=== PATIENT | male | born 1990 | race Caucasian/White ===

== ENCOUNTER 2018-12-30 17:47 | Observation (INO) ==
[2018-12-30] MEDS ORDERED: 0.9 % Sodium Chloride 1,000 ML IVC ONE (18:09)
[2018-12-30] MEDS ORDERED: Ondansetron 4 MG/2 ML VIAL IVP ONE ×2 (18:09→20:07)
[2018-12-30] MEDS ORDERED: Famotidine 20 MG/2 ML VIAL IVP ONE (18:09)
--- NOTE | 2018-12-30 18:29 | Emergency Department Note ---
Disposition Clinical Impression: Nausea and vomiting Qualifiers: Vomiting type: unspecified Vomiting Intractability: intractable Qualified Code(s): R11.2 - Nausea with vomiting, unspecified Disposition: Admitted As Inpatient Condition: Good General Adult HPI - General Chief complaint: ED Nausea/Vomiting/Diarrhea Stated complaint: "N/T all over",nausea Time Seen by Provider: 12/30/18 17:56 Source: patient Mode of arrival: private vehicle Nursing Notes Reviewed: Yes Vital Signs Reviewed: Yes - History of Present Illness HPI Narrative: Patient is a 28-year-old male with past medical history including Suboxone use, anxiety and depression, presenting with chief complaint of nausea and vomiting, numbness and tingling all over his body for the past day. The patient was recently hospitalized proximately 1 week ago for intractable nausea and vomiting. He states he has not taken his Suboxone in several weeks. He had an abdominal and pelvis CT that showed no acute abdominal or pelvic abnormality. His symptoms improved and he was discharged home on Zofran and Carafate. He followed up with his primary care physician who has the patient scheduled for an outpatient EGD on January 08. The patient states he has since ran out of his medications. 2 days ago, he complains of generalized weakness and has decreased appetite. He complains today of nausea and one episode of nonbilious nonbloody vomiting. He states he is also having diarrhea however it is less than before. Nonbloody. Non-melanotic. He also complains of left-sided abdominal pain and epigastric pain. Since he has vomited, he complains of a numbness and tingling sensation throughout his entire body. Pain Scale: 0 - Related Data Home Medications Medication Instructions Recorded Confirmed ARIPiprazole [Abilify] 5 mg PO DAILY 12/18/18 12/30/18 FLUoxetine HCl [Prozac] 20 mg PO DAILY 12/18/18 12/30/18 Allergies Allergy/AdvReac Type Severity Reaction Status Date / Time Amoxicillin [From Augmentin] Allergy See Verified 12/16/18 20:48 Comments clavulanic acid Allergy See Verified 12/16/18 20:48 [From Augmentin] Comments All systems ED: reviewed and negative except as stated. Review of Systems: As Per HPI Constitutional: Denies: fever, chills Cardiovascular: Denies: chest pain, palpitations Respiratory: Denies: dyspnea Gastrointestinal: Reports: abdominal pain, nausea, vomiting, diarrhea Genitourinary: Denies: dysuria Musculoskeletal: Denies: back pain Neurological: Reports: numbness. Denies: headache, weakness Past Medical History - Past Medical History Attestation: Yes The following information was validated with the patient. Source: patient Medical history: Reports: other Surgical history: Reports: herniorrhaphy Psychiatric history: Reports: anxiety, depression - Social History Smoking Status: Former smoker Smokeless Tobacco Status: No Alcohol use: Reports: none Drug use: Reports: none Physical Exam - General Limitations: no limitations General appearance: alert, in no apparent distress - Head Head exam: atraumatic, normocephalic - Eye Eye exam: Present: normal appearance, EOMI - ENT ENT exam: normal exam, mucous membranes moist - Neck Neck exam: Present: normal inspection, trachea midline. Absent: tenderness - Chest Chest inspection: Present: normal inspection, symmetric chest wall rise. Absent: tenderness - Respiratory Respiratory exam: Present: normal lung sounds bilaterally. Absent: respiratory distress, wheezes - Cardiovascular Cardiovascular exam: Present: regular rate, normal rhythm, normal heart sounds - Abdominal Exam Abdominal exam: Present: soft, Non-Tender. Absent: distention, guarding, rebound - Extremities Exam Extremities exam: Present: full ROM, normal capillary refill. Absent: calf tenderness - Neurological Exam Neurological exam: Present: alert, oriented X3 - Psychiatric Psychiatric exam: Present: normal affect, normal mood - Skin Skin exam: Present: warm, dry, intact, other (Normal skin turgor) Course Vital Signs Temperature 98.4 F 12/30/18 17:57 Pulse Rate 107 12/30/18 17:57 Respiratory Rate 18 12/30/18 17:57 Blood Pressure 144/84 12/30/18 17:57 O2 Sat by Pulse Oximetry 100 12/30/18 17:57 Temperature 98.4 F 12/30/18 17:57 Pulse Rate 107 12/30/18 17:57 Respiratory Rate 18 12/30/18 17:57 Blood Pressure 144/84 12/30/18 17:57 O2 Sat by Pulse Oximetry 100 12/30/18 17:57 Oxygen Delivery Oxygen Delivery Room Air Medical Decision Making - MDM Narrative Medical decision making narrative: Patient's medical records and prior hospitalization was reviewed. The patient signed out AGAINST MEDICAL ADVICE on December 20 as he was feeling better. It was advised the patient's stay as he was a septic risk. He has since followed up with his primary care physician and scheduled for an EGD on January 08. He has ran out of his Zofran and Carafate. We will evaluate his electrolytes. He has some sinus tachycardia, will give him a liter of IV fluids, give him Pepcid and Zofran. 19:15 The patient has a potassium of 3.1. The patient states his nausea slightly improved. Tachycardia is improved, heart rate is in the 60s. We will try a GI cocktail for his abdominal pain. If he can tolerate the GI cocktail, will give potassium supplement by mouth. He is also still having pain. Will obtain CT abd/pelvis with IV contrast to re-evaluate as he is returning for intractable nausea and vomiting. 21:00 The patient states he still does not feel better, continues to have nausea. He does not want to try to eat anything. CT abdomen and pelvis results reviewed. No acute abdominal pelvic abnormality. We will admit the patient for intractable nausea and vomiting. 21:30 D/w Dr. Thomas, hospitalist, who accepts admission. Will replace the potassium. Also obtain urine drug screen. This may be GI related, or the patient may be withdrawing as he has not had Suboxone in several weeks. - Medical Records Medical records reviewed: Yes I reviewed the patient's medical records. - Lab Data Lab results reviewed: Yes I reviewed the patient's lab results. Result diagrams: 12/30/18 18:28 12/30/18 18:28 Lab Results 12/30/18 12/30/18 Range/Units 18:28 18:28 WBC 8.0 (4.3-11.1) K/mcL RBC 4.80 (4.19-5.50) M/mcL Hgb 14.7 (12.9-16.9) g/dL Hct 43.8 (37.5-50.1) % MCV 91.3 (83.0-100.0) fL MCH 30.6 (28.0-33.3) pg MCHC 33.6 (31.6-35.5) g/dL RDW 11.5 (11.5-14.5) % Plt Count 150 (140-400) K/mcL MPV 12.5 H (9.4-12.4) fL Immature Gran % 0.4 (0-4) % Seg Neutrophils % 70.2 % Lymphocytes % 21.6 % Monocytes % 7.0 % Eosinophils % 0.4 % Basophils % 0.4 % Neutrophils # 5.6 (1.6-8.9) K/mcL Lymphocytes # 1.7 (0.6-4.6) K/mcL Monocytes # 0.6 (0.0-1.3) K/mcL Eosinophils # 0.0 (0.0-0.6) K/mcL Basophils # 0.0 (0.0-0.2) K/mcL Sodium 140 (136-145) mEq/L Potassium 3.1 L (3.5-5.1) mEq/L Chloride 107 (98-107) mEq/L Carbon Dioxide 27 (23-29) mEq/L BUN 9 (6-20) mg/dL Creatinine 0.81 (0.70-1.30) mg/dL Est GFR ( Amer) > 60 (> 60) Est GFR (Non-Af Amer) > 60 (> 60) BUN/Creatinine Ratio 11 (6-26) Glucose 121 H (70-105) mg/dL Calculated Osmolality 290 (280-300) Calcium 9.6 (8.6-10.3) mg/dL Magnesium 2.2 (1.6-2.6) mg/dL Total Bilirubin 0.5 (0.3-1.0) mg/dL AST 11 L (13-39) Units/L ALT 17 (7-52) Units/L Alkaline Phosphatase 60 (34-104) Units/L Serum Total Protein 6.7 (6.4-8.9) g/dL Albumin 4.6 (3.5-5.7) g/dL Globulin 2.1 L (2.4-3.5) g/dL Albumin/Globulin Ratio 2.2 (1.1-2.2) Lipase 12 (11-82) Units/L - Radiology Data Radiology results reviewed: Yes I reviewed the patient's radiology results. Abdomen/Pelvis CT 12/30/18 20:01 IMPRESSION: No acute process identified. Normal appendix. D/ / 12/30/2018 21:02:19 Gabriel Guerrero MD / evgeny Interpreting Provider: Gabriel Guerrero MD - EKG Data EKG #1 EKG attestation: Yes I reviewed and interpreted this EKG. EKG results narrative: EKG obtained at 1830 shows sinus rhythm with heart rate 74, VT interval 140, QRS duration 103, QTC 409, no ST elevation or depression. Compared to old EKG on 12/18/2018 which at that time showed sinus bradycardia otherwise no acute changes. Attestation Statement - Attestation Attestation: Resident Attestation: I examined this patient and my medical decision making was reviewed with the Resident Physician. I agree with the documented findings, disp osition and treatment plan as described except to the extent set forth below. We independently had [id number] contact with the patient. Patient presenting for evaluation of abdominal pain that is epigastric and left upper quadrant in nature. Patient underwent hospital stay. No specific etiology was found. Patient was put on Keflex and Zofran. Patient has run out of these prescriptions. Patient with worsening pain. Patient with EGD scheduled for the . Patient states unable to make it any longer. Patient will undergo further evaluation with blood work as well as CT scan. Patient did feel GI cocktail trial. Patient does have significant left upper quadrant tenderness. Given the patient's inability to tolerate by mouth he will undergo admission.
[2018-12-30 18:55] LABS: Basophils % 0.4 %; Eosinophils % 0.4 %; Hematocrit 43.8 % (37.5-50.1); Hemoglobin 14.7 g/dL (12.9-16.9); Immature Granulocytes % 0.4 % (0-4); Lymphocytes # 1.7 K/mcL (0.6-4.6); Lymphocytes % 21.6 %; Mean Corpuscular HGB Conc 33.6 g/dL (31.6-35.5); Mean Corpuscular Hemoglobin 30.6 pg (28.0-33.3); Mean Corpuscular Volume 91.3 fL (83.0-100.0); Mean Platelet Volume 12.5 fL (9.4-12.4); Monocytes # 0.6 K/mcL (0.0-1.3); Neutrophils # 5.6 K/mcL (1.6-8.9); Platelet Count 150 K/mcL (140-400); Red Cell Distribution Width 11.5 % (11.5-14.5); Segmented Neutrophils % 70.2 %
[2018-12-30 19:10] LABS: Alanine Aminotransferase 17 Units/L (7-52); Albumin 4.6 g/dL (3.5-5.7); Albumin/Globulin Ratio 2.2 (1.1-2.2); Alkaline Phosphatase 60 Units/L (34-104); Aspartate Amino Transferase 11 Units/L (13-39); BUN/Creatinine Ratio 11 (6-26); Bilirubin,Total 0.5 mg/dL (0.3-1.0); Blood Urea Nitrogen 9 mg/dL (6-20); Calcium 9.6 mg/dL (8.6-10.3); Carbon Dioxide 27 mEq/L (23-29); Chloride 107 mEq/L (98-107); Globulin 2.1 g/dL (2.4-3.5); Glucose 121 mg/dL (70-105); Lipase 12 Units/L (11-82); Magnesium 2.2 mg/dL (1.6-2.6); Osmolality,Calculated 290 (280-300); Potassium 3.1 mEq/L (3.5-5.1); Sodium 140 mEq/L (136-145); Total Protein 6.7 g/dL (6.4-8.9); eGFR For Non-African Americans > 60 (> 60)
[2018-12-30] MEDS ORDERED: GI Cocktail 40 ML EACH PO ONE (19:12)
[2018-12-30] MEDS ORDERED: Isovue-370 500 ML BOTTLE IVP ONE (20:01)
--- NOTE | 2018-12-30 22:45 | Internal Med History&Physical ---
<Parag Mixon - Last Filed: 12/31/18 00:44> Date of Encounter: 12/31/18 Time of Encounter: 10:30 Internal Medicine - H&P: HPI Chief complaint: intractabe vomiting and nausea History of present illness: Mr. Aldana is a 28 year old male with past medical history of anxiety and depression who presents to the ED because of multiple episodes of nonbloody nonb ilious vomiting along with the episodes of diarrhea +, nausea accompanied with the left-sided abdominal pain. Patient endorses that all the symptoms began almost a week ago when he was first admitted for the similar symptoms to the hospital but then left AMA. Patient endorses that he felt a little better for 2 days after leaving the hospital but then the symptoms relapsed although he does endorse that his diarrheal frequency has reduced. Patient endorses that his vomiting exacerbates and belly pain gets worse after eating. Patient also endorses feelings of tingling or numbness in extremities for the last 2 days. Patient has a history of opiate addiction and has been clean since July 2018. He has been on Suboxone since 09/05 and has been getting a week's worth of supply until 12/06. Patient tells me that he never had these symptoms when he was on Suboxone. He wasn 't able to get his refills of his Suboxone because of the symptoms of N/V that forced him to come to the hospital last week . Patient denies any symptoms like auditory or visual hallucinations, diaphoresis, or chest pain. Workup in the ED showed that patient was afebrile with an elevated blood pressure of 144/84 ( 2 days ago he measured his blood pressure which was 117 systolic). Patient labs showed that he was hypokalemic at 3.1 with a low globulin of 2.1. EKG showed sinus rhythm with heart rate 74, MS interval 140, QRS duration 103, QTC 409, no ST elevation or depression. Compared to old EKG on 12/18/2018 which at that time showed sinus bradycardia otherwise no acute changes. He was given a liter of fluids in the ED along with Pepcid, Zofran and GI cocktail which helped with his symptoms a little bit. Patient's CT abdomen and pelvis with contrast showed no acute process. Patient was transferred to the floor for further management of his symptoms. Past Med Surg Social Fam HX - Past Medical History Medical history: no medical history Additional medical history: facial fracture Psychiatric history: anxiety, depression - Past Surgical History Surgical History: herniorrhaphy Additional surgical history: Rt inguinal hernia repair - Social History Smoking Status: Former smoker Smokeless Tobacco Status: No Alcohol use: none Drug use: none - Family History Mother Hx Family Cardiac Disorders: Yes (HI, CAD) Internal Medicine - H&P: Meds ARIPiprazole [Abilify] 5 mg PO DAILY 12/18/18 [History] FLUoxetine HCl [Prozac] 20 mg PO DAILY 12/18/18 [History] Allergy/AdvReac Type Severity Reaction Status Date / Time Amoxicillin [From Augmentin] Allergy See Verified 12/16/18 20:48 Comments clavulanic acid Allergy See Verified 12/16/18 20:48 [From Augmentin] Comments All Systems PM: A 10-system review of systems was performed and is negative for pertinent findings except as documented above in the HPI. - Constitutional Constitutional: no fever(s) - Cardiovascular Cardiovascular ROS IM: no chest pain - Respiratory Respiratory: no cough - Gastrointestinal Gastrointestinal: abdominal pain - Neurological Neurological ROS: tingling, no lack of coordination - Constitutional Vitals: Temp Pulse Resp BP Pulse Ox 97.4 F L 84 15 124/79 100 12/30/18 22:15 12/30/18 22:15 12/30/18 22:15 12/30/18 22:15 12/30/18 22:15 Exam: Gen.: Vitals noted. No acute distress. Alert, awake and oriented * 3 [address], [address], and time, well developed. Pleasant. HEENT: oropharynx clear, Normocephalic, atraumatic, MMM Neck: supple, no JVD, no lymphadenopathy, no carotid bruit. Cardiac: RRR, no murmur, +S1/S2, No BLE edema, PMI non-displaced Pulmonary: CTA bilaterally, no wheezes, rales or rhonchi, equal chest expansion, unlabored breathing Abdomen: soft, mildy tender, BS noted, no guarding. No organomegaly, no pulsatile masses, Skin: warm and dry, no visible lesions. Feels warm, clammy, no rashes, no lesions, no erythema MSK: ROM not assessed. no joint swelling noted, gait not assessed while in bed. Non tender calf or clubbing, no cyanosis/clubbing/ or edema Neuro: A&O, moves all extremities, no focal deficits, sensation intact Psych: Appropriate mood and behavior, normal speech. Internal Med - H&P Results - Labs CBC & Chem 7: 12/30/18 18:28 12/30/18 18:28 Labs: Short CBC 12/30/18 Range/Units 18:28 WBC 8.0 (4.3-11.1) K/mcL Hgb 14.7 (12.9-16.9) g/dL Hct 43.8 (37.5-50.1) % Plt Count 150 (140-400) K/mcL Neutrophils # 5.6 (1.6-8.9) K/mcL BMP 12/30/18 18:28 Sodium 140 Potassium 3.1 L Chloride 107 Carbon Dioxide 27 BUN 9 Creatinine 0.81 Glucose 121 H Calcium 9.6 Liver Function 12/30/18 Range/Units 18:28 Total Bilirubin 0.5 (0.3-1.0) mg/dL AST 11 L (13-39) Units/L ALT 17 (7-52) Units/L Alkaline Phosphatase 60 (34-104) Units/L Albumin 4.6 (3.5-5.7) g/dL - Impressions ITS Impressions Abdomen/Pelvis CT 12/30/18 20:01 IMPRESSION: No acute process identified. Normal appendix. D/ / 12/30/2018 21:02:19 Gabriel Guerrero MD / evgeny Interpreting Provider: Gabriel Guerrero MD - Assessment and Plan (1) Vomiting and diarrhea Current Visit: Yes Status: Acute Assessment and plan: -Patient presents with multiple episodes of nonbloody nonbilious vomiting and non-bloody diarrhea for the last couple days -Likely secondary to withdrawal from Suboxone -Patient denies any sick contacts, recent travels or eating contaminated food -His CT abdominal pelvis was negative for any acute abnormalities -Patient was afebrile in the ED with normal blood chemistries -He received Zofran, Pepcid and GI cocktail in the ER to help with his symptoms -He also received a liter of IV fluids PLAN: -Continue maintenance fluid (0.9 % NaCL + 40 mEq KCl) at 125 ml/hr. - promethazine q6hr prn N/V -Advance diet as tolerated (2) Abdominal pain Current Visit: Yes Status: Acute Assessment and plan: -Present to the ED because of left sided abdominal pain which is crampy in nature which could be likely secondary to multiple episodes of vomiting along with withdrawal from Suboxone -CT abdominal pelvis was negative for any acute abnormalities PLAN: -Continue maintenance fluid of 125 ml/hr. - Promethazine q6hr prn N/V -protonix 40mg IVP for GI prophylaxis -Tylenol PRN for pain control -Advance diet as tolerated Qualifiers: Qualified Code(s): R10.9 - Unspecified abdominal pain (3) DVT prophylaxis Current Visit: No Status: Acute Assessment and plan: Subcutaneous heparin - Time Spent With Patient Total time spent is greater than 50% in coordination of care (as documented) at patient's floor/unit and/or counseling patient: <Johan Thomas - Last Filed: 12/31/18 01:33> Date of Encounter: 12/31/18 Time of Encounter: 00:45 - Constitutional Constitutional: no chills, no fever(s) - EENT Eyes: no change in vision Ears: no ear pain Nose, mouth and throat: no sore throat - Cardiovascular Cardiovascular ROS IM: no chest pain, no dyspnea - Gastrointestinal Gastrointestinal: abdominal pain, diarrhea, heartburn, loose stools, nausea, vomiting, no hematemesis, no hematochezia, no melena - Genitourinary Genitourinary ROS male: no dysuria, no flank pain, no hematuria - Integumentary Integumentary IM: no rash, no jaundice - Neurological Neurological ROS: no dizziness, no focal weakness, no frequent falls, no headache(s) - Psychiatric Psychiatric: anxiety, no depression - Endocrine Endocrine IM: no polydipsia, no polyuria - Allergic/Immunologic Allergic/Immunologic: GI upset with certain foods - Constitutional Vitals: Temp Pulse Resp BP Pulse Ox 97.4 F L 84 15 124/79 100 12/30/18 22:15 12/30/18 22:15 12/30/18 22:15 12/30/18 22:15 12/30/18 22:15 General appearance: Present: cooperative, mild distress, A&O X 3, pleasant, answers questions appropriately - Head Head exam: Present: normal inspection - Eye Eye exam: Present: EOMI, PERRL. Absent: scleral icterus Pupils: Present: normal accommodation - ENT ENT exam: Present: mucous membranes dry, normal exam, normal oropharynx - Neck Neck exam general surgery: Present: full ROM, supple, trachea midline. Absent: tenderness, nuchal rigidity, thyromegaly - Respiratory Respiratory exam: Present: CTAB. Absent: chest wall tenderness, rales, rhonchi, wheezes - Cardiovascular Cardiovascular exam: Present: RRR, +S1, +S2. Absent: diastolic murmur, systolic murmur - GI/Abdominal GI/Abdominal exam: Present: normal bowel sounds, soft, tenderness (minimal), no peritoneal signs. Absent: guarding, hepatomegaly, mass, rebound, splenomegaly - Extremities Exam Extremities exam: Present: full ROM, normal capillary refill, warm, radial pulses palpable and symmetrical. Absent: calf tenderness, pedal edema, tenderness - Back Exam Back exam: Absent: CVA tenderness (L), CVA tenderness (R) - Neurological Exam Neurological exam: Present: alert, CN II-XII intact, oriented X3, no focal deficits - Psychiatric Psychiatric exam: Present: normal affect, normal mood - Skin Skin exam: Present: dry, intact, warm Internal Med - H&P Results - Labs CBC & Chem 7: 12/30/18 18:28 12/30/18 18:28 Labs: Short CBC 12/30/18 Range/Units 18:28 WBC 8.0 (4.3-11.1) K/mcL Hgb 14.7 (12.9-16.9) g/dL Hct 43.8 (37.5-50.1) % Plt Count 150 (140-400) K/mcL Neutrophils # 5.6 (1.6-8.9) K/mcL BMP 12/30/18 18:28 Sodium 140 Potassium 3.1 L Chloride 107 Carbon Dioxide 27 BUN 9 Creatinine 0.81 Glucose 121 H Calcium 9.6 Liver Function 12/30/18 Range/Units 18:28 Total Bilirubin 0.5 (0.3-1.0) mg/dL AST 11 L (13-39) Units/L ALT 17 (7-52) Units/L Alkaline Phosphatase 60 (34-104) Units/L Albumin 4.6 (3.5-5.7) g/dL - EKG Data -: EKG Interpreted by Myself - EKG Data Prior EKG available for review: no EKG comments: 12/31/18 01:21 NSR; no acute changes - Impressions ITS Impressions Abdomen/Pelvis CT 12/30/18 20:01 IMPRESSION: No acute process identified. Normal appendix. D/ / 12/30/2018 21:02:19 Gabriel Guerrero MD / evgeny Interpreting Provider: Gabriel Guerrero MD - Time Spent With Patient Total time spent is greater than 50% in coordination of care (as documented) at patient's floor/unit and/or counseling patient: - Attending Attestation I discussed the patient GUL[place], past medical history, review of systems, lab data, imaging findings, and exam findings with Dr. Mixon. I then saw and examined patient independently as well. Symptoms all began shortly after he missed his Suboxone doses a couple weeks ago. They have persisted since then. He did have some periodic relief, but symptoms recurred this weekend. I called our pharmacy and our pharmacist verified his prescription at [facility] through [facility] report. We are checking a urine drug screen. If his drug screen is negative, we will resume his Suboxone in hopes of alleviating what I suspect are symptoms of withdrawal from Suboxone. If symptoms persist, he will likely need further GI workup. However, based upon clinical exam and history, I suspect this is all Suboxone withdrawal. Other than my comments above and documented exam findings, I agree with Dr. Mixon's assessment and plan.
[2018-12-30] MEDS ORDERED: 0.9 % Sodium Chloride 1,000 ML IVC SCH (23:00)
[2018-12-30] MEDS ORDERED: Potassium Chloride 40 MEQ, Lidocaine 1% 2 ML in D5% in Water 500 ML IVPB ONE (23:15)
[2018-12-31] MEDS: *HR* Heparin 5,000 UNIT/ML VIAL SQ SCH ×3 (00:02→18:11)
[2018-12-31] MEDS ORDERED: Pantoprazole 40 MG VIAL IVP ONE (00:20)
[2018-12-31] MEDS ORDERED: Acetaminophen 325 MG TABLET PO PRN (00:21)
[2018-12-31 01:23] LABS: Amphetamine Screen,Urine Negative ng/mL (Cutoff=1000); Barbiturate Screen,Urine Negative ng/mL (Cutoff=200); Benzodiazepines Screen,Urine Negative ng/mL (Cutoff=200); Cannabinoid Screen,Urine Negative ng/mL (Cutoff = 50); Cocaine Screen,Urine Negative ng/mL (Cutoff= 300); Opiate Screen,Urine Negative ng/mL (Cutoff=300); Phencyclidine Screen,Urine Negative ng/mL (Cutoff=25)
[2018-12-31] MEDS: 0.9 % Sodium Chloride w KCl 40 MEQ/1,000 ML MLS IVC SCH ×4 (03:29→19:17)
--- NOTE | 2018-12-31 09:11 | Internal Med Progress Note ---
Hospitalist Progress Note - Encounter Date of Encounter: 12/31/18 Time of Encounter: 09:09 - Subjective Interval History: Patient is seen and examined in the room, he is alert and oriented, he has no fever, chills, or night sweats, he denies hallucination, anxiety, or suicidal ideation. - Exam Vitals: Temp Pulse Resp BP Pulse Ox 97.8 F 68 15 118/73 99 12/31/18 06:36 12/31/18 06:36 12/31/18 06:36 12/31/18 06:36 12/31/18 06:36 Exam: Gen.: Vitals noted. No acute distress. Alert, awake and oriented * 3 [address], [address], and time, well developed. Pleasant. HEENT: oropharynx clear, Normocephalic, atraumatic, MMM Neck: supple, no JVD, no lymphadenopathy, no carotid bruit. Cardiac: RRR, no murmur, +S1/S2, No BLE edema, PMI non-displaced Pulmonary: CTA bilaterally, no wheezes, rales or rhonchi, equal chest expansion, unlabored breathing Abdomen: soft, mildy tender, BS noted, no guarding. No organomegaly, no pulsatile masses, Skin: warm and dry, no visible lesions. Feels warm, clammy, no rashes, no lesions, no erythema MSK: ROM not assessed. no joint swelling noted, gait not assessed while in bed. Non tender calf or clubbing, no cyanosis/clubbing/ or edema Neuro: A&O, moves all extremities, no focal deficits, sensation intact Psych: Appropriate mood and behavior, normal speech. - Assessment and Plan (1) Vomiting and diarrhea Current Visit: Yes Status: Acute Assessment and Plan: 28-year-old male with past medical history of opioid abuse, recently was started on Vivitrol, has not received Vivitrol for a month, developed nausea, vomiting, diarrhea and abdominal pain. Symptoms consistent with drug withdrawal. Continue supportive care, IV fluid, IV Ativan for agitation and withdrawal symptoms. (2) Hypokalemia Current Visit: Yes Status: Acute Assessment and Plan: Replaced, repeat a BMP in the morning. (3) Abdominal pain Current Visit: Yes Status: Acute Assessment and Plan: Same as above. (4) History of drug dependence Current Visit: No Status: Chronic Assessment and Plan: Follow-up with [facility] as outpatient. (5) DVT prophylaxis Current Visit: No Status: Acute Assessment and Plan: Ambulation. - Time Spent with Patient Total time spent is greater than 50% in coordination of care (as documented) at patient's floor/unit and/or counseling patient: 25 - 35 minutes Plan of Care Discussed with: patient Internal Medicine: Result - Labs CBC & Chem 7: 12/30/18 18:28 12/30/18 18:28 Labs: Short CBC 12/30/18 Range/Units 18:28 WBC 8.0 (4.3-11.1) K/mcL Hgb 14.7 (12.9-16.9) g/dL Hct 43.8 (37.5-50.1) % Plt Count 150 (140-400) K/mcL Neutrophils # 5.6 (1.6-8.9) K/mcL BMP 12/30/18 18:28 Sodium 140 Potassium 3.1 L Chloride 107 Carbon Dioxide 27 BUN 9 Creatinine 0.81 Glucose 121 H Calcium 9.6 Liver Function 12/30/18 Range/Units 18:28 Total Bilirubin 0.5 (0.3-1.0) mg/dL AST 11 L (13-39) Units/L ALT 17 (7-52) Units/L Alkaline Phosphatase 60 (34-104) Units/L Albumin 4.6 (3.5-5.7) g/dL - Impressions Impressions Abdomen/Pelvis CT 12/30/18 20:01 IMPRESSION: No acute process identified. Normal appendix. D/ / 12/30/2018 21:02:19 Gabriel Guerrero MD / evgeny Interpreting Provider: Gabriel Guerrero MD Consult Discharge Plan - Plan Referrals: Zackary Tapia MD [Primary Care Provider] - (Appointment has been requested. ) (3) Abdominal pain Qualifiers: Qualified Code(s): R10.9 - Unspecified abdominal pain
[2019-01-01] MEDS: 0.9 % Sodium Chloride w KCl 40 MEQ/1,000 ML MLS IVC SCH (04:45)
[2019-01-01 05:51] LABS: BUN/Creatinine Ratio 10 (6-26); Blood Urea Nitrogen 8 mg/dL (6-20); Calcium 8.7 mg/dL (8.6-10.3); Carbon Dioxide 23 mEq/L (23-29); Chloride 111 mEq/L (98-107); Glucose 102 mg/dL (70-105); Osmolality,Calculated 289 (280-300); Potassium 4.6 mEq/L (3.5-5.1); Sodium 140 mEq/L (136-145); eGFR For Non-African Americans > 60 (> 60)
[2019-01-01] MEDS: *HR* Heparin 5,000 UNIT/ML VIAL SQ SCH (06:02)
[2019-01-01 07:18] VITALS: BP 120/87
--- NOTE | 2019-01-01 08:59 | Discharge Summary ---
- NOTES TO OUTPATIENT PROVIDER Notes to Outpatient Provider: f/u with [facility] as scheduled. f/u with PCP within 2 weeks. Date of Encounter: 01/01/19 Time of Encounter: 08:57 - Discharge Diagnosis (1) Vomiting and diarrhea Priority: Primary Status: Resolved (2) Hypokalemia Priority: Primary Status: Resolved (3) Abdominal pain Priority: Primary Status: Resolved Qualifiers: Qualified Code(s): R10.9 - Unspecified abdominal pain (4) History of drug dependence Priority: Secondary Status: Chronic (5) DVT prophylaxis Priority: Primary Status: Acute Hospital course: Mr. Aldana is a 28 year old male with past medical history of anxiety and depression who presents to the ED because of multiple episodes of nonbloody nonbilious vomiting along with the episodes of diarrhea +, nausea accompanied with the left-sided abdominal pain. Patient endorses that all the symptoms began almost a week ago when he was first admitted for the similar symptoms to the hospital but then left AMA. Patient endorses that he felt a little better for 2 days after leaving the hospital but then the symptoms relapsed although he does endorse that his diarrheal frequency has reduced. Patient endorses that his vomiting exacerbates and belly pain gets worse after eating. Patient also endorses feelings of tingling or numbness in extremities for the last 2 days. Patient has a history of opiate addiction and has been clean since July 2018. He has been on Suboxone since 09/05 and has been getting a week's worth of supply until 12/06. Patient tells me that he never had these symptoms when he was on Suboxone. He wasn 't able to get his refills of his Suboxone because of the symptoms of N/V that forced him to come to the hospital last week . Patient denies any symptoms like auditory or visual hallucinations, diaphoresis, or chest pain. Workup in the ED showed that patient was afebrile with an elevated blood pressure of 144/84 ( 2 days ago he measured his blood pressure which was 117 systolic). Patient labs showed that he was hypokalemic at 3.1 with a low g lobulin of 2.1. EKG showed sinus rhythm with heart rate 74, WV interval 140, QRS duration 103, QTC 409, no ST elevation or depression. Compared to old EKG on 12/18/2018 which at that time showed sinus bradycardia otherwise no acute changes. He was given a liter of fluids in the ED along with Pepcid, Zofran and GI cocktail which helped with his symptoms a little bit. Patient's CT abdomen and pelvis with contrast showed no acute process. Patient was transferred to the floor for further management of his symptoms. Pt received IVF, K+ was replaced. IV Phenergan was given for nausea. His GI symptoms have improved. On the discharge day, he is able to tolerate oral. No N/V, or diarrhea. vitals are stable and labs are unremarkable. He is discharged, f/u with PCP and [facility] clinic as scheduled. Discharge discussed with: patient Time spent discussing smoking cessation with patient: more than 10 minutes - Time Spent with Patient Total time spent providing and/or coordinating discharge services: Time spent: Greater than 30 minutes - Discharge Medications Prescriptions: Continued ARIPiprazole [Abilify] 5 mg PO DAILY FLUoxetine HCl [Prozac] 20 mg PO DAILY Pantoprazole Sodium [Protonix] 20 mg PO DAILY Home Medications: ARIPiprazole [Abilify] 5 mg PO DAILY 12/18/18 [History] FLUoxetine HCl [Prozac] 20 mg PO DAILY 12/18/18 [History] Pantoprazole Sodium [Protonix] 20 mg PO DAILY 12/31/18 [History] Allergies/Adverse Reactions: Allergy/AdvReac Type Severity Reaction Status Date / Time Amoxicillin [From Augmentin] Allergy See Verified 12/31/18 14:48 Comments clavulanic acid Allergy See Verified 12/31/18 14:47 [From Augmentin] Comments Date of admission: 12/30/18 21:46 Primary care physician: Zackary Tapia MD Anticipated date of discharge: 01/01/19 - Constitutional Vitals: Temp Pulse Resp BP Pulse Ox 97.7 F 76 20 120/87 100 01/01/19 07:17 01/01/19 07:17 01/01/19 07:17 01/01/19 07:17 01/01/19 07:17 General appearance: Present: cooperative, mild distress, A&O X 3, pleasant, answers questions appropriately Exam: Gen.: Vitals noted. No acute distress. Alert, awake and oriented * [address], and time, well developed. Pleasant. HEENT: oropharynx clear, Normocephalic, atraumatic, MMM Neck: supple, no JVD, no lymphadenopathy, no carotid bruit. Cardiac: RRR, no murmur, +S1/S2, No BLE edema, PMI non-displaced Pulmonary: CTA bilaterally, no wheezes, rales or rhonchi, equal chest expansion, unlabored breathing Abdomen: soft, mildy tender, BS noted, no guarding. No organomegaly, no pulsatile masses, Skin: warm and dry, no visible lesions. Feels warm, clammy, no rashes, no lesions, no erythema MSK: ROM not assessed. no joint swelling noted, gait not assessed while in bed. Non tender calf or clubbing, no cyanosis/clubbing/ or edema Neuro: A&O, moves all extremities, no focal deficits, sensation intact Psych: Appropriate mood and behavior, normal speech. - Patient Status Disposition: Home, Self-Care Condition: Good Functional capacity at discharge: independent ambulation Overall status at discharge: patient is progressing back to baseline - Discharge Instructions Follow Up With: Zackary Tapia MD [Primary Care Provider] - (Appointment has been requested. ) - Diet and Activity Activity: increase activity as tolerated Diet: advance to your usual diet
--- NOTE | 2019-01-01 10:45 | Electrocardiograph Report ---
[place] [id number] Test Date: 2018-12-30 Pat Name: Zackary Aldana Department: EXAM5 Room: 3B39 Gender: M Welder Operator: : 1990 Requested By: Cassy Shannon Order Number: [id number] Reading MD: Loreto Pineda Measurements Intervals [place] Rate: 74 P: 63 DE: 140 QRS: 100 QRSD: 103 T: 39 QT: 368 QTc: 409 Interpretive Statements Sinus rhythm Borderline right axis deviation Electronically Signed On 01-01-2019 10:43:46 EDT by Lorteo Pineda
== END 2019-01-01 09:41 | disposition home or self-care (01) ==
LOC: 3BNU 17:47 → EMEROOARM 17:47 → 3BNU 22:17
PROVIDERS: ADMIT Pediatrics; ATTEND Pediatrics

== ENCOUNTER 2019-02-19 15:01 | Inpatient (IN) ==
--- NOTE | 2019-02-19 15:13 | Emergency Department Note ---
Disposition Clinical Impression: Suicidal ideation Disposition: Admitted As Inpatient Condition: Fair Time of Disposition: 20:34 Psych HPI - General Stated Complaint: SI Time Seen by Provider: 02/19/19 15:02 Source: patient, EMS Mode of arrival: EMS Limitations: no limitations Nursing Notes Reviewed: Yes Vital Signs Reviewed: Yes - History of Present Illness HPI Narrative: 28 yo male with PMHx of bipolar disorder and anxiety presents to the emergency department via EMS with suicidal ideations. Patient states he does not remember the last time he took any of his medications as he has been out of them. He has been having increasing suicidal thoughts over the past week but the past 2 days they have been constant. He has had thoughts like this in the past but states they always went away on their own. Today his mother called EMS because the patient said that he wanted to end it all. Patient does want to seek help and talk to somebody here today because he does not want to end his life but he does not know how to get these feelings to go away. Does not have any complaints at this time including fevers, chest pain, shortness of breath, abdominal pain, nausea and vomiting. He has not taken anything to try to overdose today and denies alcohol use today. Patient denies homicidal ideation, visual and auditory hallucinations. He does not know the normal medications that he takes for his bipolar disorder and anxiety. He has no specific plan at this time. He states the specific exacerbation of his suicidal ideations started when his fiancee left him a little over a week ago. - Related Data Home Medications Medication Instructions Recorded Confirmed Divalproex (24 HR) [Depakote ER 500 mg PO HS 02/19/19 02/19/19 (24 HR)] hydrOXYzine HCl [Hydroxyzine HCl] 25 mg PO TID PRN 02/19/19 02/19/19 Allergies Allergy/AdvReac Type Severity Reaction Status Date / Time Amoxicillin [From Augmentin] Allergy See Verified 12/31/18 14:48 Comments clavulanic acid Allergy See Verified 12/31/18 14:47 [From Augmentin] Comments All systems ED: reviewed and negative except as stated. Review of Systems: As Per HPI Constitutional: Denies: fever, weakness Cardiovascular: Denies: chest pain, dyspnea on exertion Respiratory: Denies: cough, dyspnea, wheezes Gastrointestinal: Denies: abdominal pain, nausea, vomiting, diarrhea Genitourinary: Denies: dysuria, hematuria Musculoskeletal: Denies: back pain, neck pain Integumentary: Denies: rash Neurological: Denies: headache Psychiatric: Reports: anxiety, depression, suicidal thoughts. Denies: homicidal thoughts, auditory hallucinations, visual hallucinations Endocrine: Denies: fatigue Past Medical History - Past Medical History Attestation: Yes The following information was validated with the patient. Source: patient Medical history: Reports: no medical history Surgical history: Reports: herniorrhaphy Psychiatric history: Reports: anxiety, depression - Social History Smoking Status: Former smoker Smokeless Tobacco Status: No Alcohol use: Reports: none Drug use: Reports: none Physical Exam - General Limitations: no limitations General appearance: alert, in no apparent distress - Head Head exam: atraumatic, normocephalic - Eye Eye exam: Present: normal appearance, EOMI - ENT ENT exam: normal exam - Neck Neck exam: Present: normal inspection - Chest Chest inspection: Present: normal inspection. Absent: tenderness, rash - Respiratory Respiratory exam: Present: normal lung sounds bilaterally. Absent: wheezes - Cardiovascular Cardiovascular exam: Present: regular rate, normal rhythm - Abdominal Exam Abdominal exam: Present: soft, Non-Tender. Absent: distention, guarding, rebound, rigidity - Extremities Exam Extremities exam: Present: normal inspection. Absent: tenderness, pedal edema - Neurological Exam Neurological exam: Present: alert, oriented X3 - Psychiatric Psychiatric exam: Present: depressed, flat affect, suicidal ideation. Absent: manic, homicidal ideation - Skin Skin exam: Present: warm, dry, intact Course Vital Signs Temperature 98.6 F 02/19/19 15:30 Pulse Rate 87 02/19/19 15:30 Respiratory Rate 14 02/19/19 15:30 Blood Pressure 118/74 02/19/19 15:30 O2 Sat by Pulse Oximetry 98 02/19/19 15:30 Temperature 98.6 F 02/19/19 15:30 Pulse Rate 87 02/19/19 15:30 Respiratory Rate 14 02/19/19 15:30 Blood Pressure 118/74 02/19/19 15:30 O2 Sat by Pulse Oximetry 98 02/19/19 15:30 Oxygen Delivery Oxygen Delivery Room Air Psych - MDM Narrative Medical decision making narrative: Patient presents with suicidal ideations and wishes to be placed back on his medications. We will obtain basic lab work, tox screen and then plan on consulting [facility] for further management of this patient. Patient notes no requests at this time. 2030 - [facility] has accepted the patient for further treatment of his SI. - Lab Data Result diagrams: 02/19/19 15:24 02/19/19 15:24 Lab Results 02/19/19 02/19/19 02/19/19 Range/Units 15:24 15:24 17:27 WBC 8.9 (4.3-11.1) K/mcL RBC 4.94 (4.19-5.50) M/mcL Hgb 14.9 (12.9-16.9) g/dL Hct 44.1 (37.5-50.1) % MCV 89.3 (83.0-100.0) fL MCH 30.2 (28.0-33.3) pg MCHC 33.8 (31.6-35.5) g/dL RDW 12.3 (11.5-14.5) % Plt Count 168 (140-400) K/mcL MPV 12.0 (9.4-12.4) fL Immature Gran % 0.3 (0-4) % Seg Neutrophils % 62.2 % Lymphocytes % 28.2 % Monocytes % 8.1 % Eosinophils % 0.6 % Basophils % 0.6 % Neutrophils # 5.5 (1.6-8.9) K/mcL Lymphocytes # 2.5 (0.6-4.6) K/mcL Monocytes # 0.7 (0.0-1.3) K/mcL Eosinophils # 0.1 (0.0-0.6) K/mcL Basophils # 0.1 (0.0-0.2) K/mcL Sodium 143 (136-145) mEq/L Potassium 3.7 (3.5-5.1) mEq/L Chloride 110 H (98-107) mEq/L Carbon Dioxide 27 (23-29) mEq/L BUN 10 (6-20) mg/dL Creatinine 1.03 (0.70-1.30) mg/dL Est GFR ( Amer) > 60 (> 60) Est GFR (Non-Af Amer) > 60 (> 60) BUN/Creatinine Ratio 10 (6-26) Glucose 101 (70-105) mg/dL Calculated Osmolality 295 (280-300) Calcium 9.9 (8.6-10.3) mg/dL Urine Color Dark Yellow (Yellow) Urine Clarity Clear (Clear) Urine pH 5.5 (5.0-8.0) pH Units Ur Specific [place] 1.028 H (1.010-1.025) Urine Protein 30 H (Neg-Trace) mg/dL Urine Glucose (UA) Normal (Normal) mg/dL Urine Ketones Negative (Negative) mg/dL Urine Blood Negative (Negative) Urine Nitrite Negative (Negative) Urine Bilirubin Small H (Negative) Urine Urobilinogen Normal (Normal) mg/dL Ur Leukocyte Esterase Negative (Negative) Urine Microscopic RBC 0-3 (0-3) per hpf Urine Microscopic WBC 0-3 (0-3) per hpf Ur Squamous Epith Cells Many H (None-Few) per lpf Urine Bacteria None Seen (None-Few) per hpf Hyaline Casts None Seen (None-Few) per lpf Salicylates < 2.5 L (15.0-30.0) mg/dL Urine Opiates Screen (Qfvqan=318) ng/mL Acetaminophen < 10 L (10-20) mcg/mL Ur Barbiturates Screen (Pmxkrp=170) ng/mL Ur Phencyclidine Scrn (Cutoff=25) ng/mL Ur Amphetamines Screen (Oogxxv=9272) ng/mL U Benzodiazepines Scrn (Ddklpu=272) ng/mL Urine Cocaine Screen (Cutoff= 300) ng/mL U Marijuana (THC) Screen (Cutoff = 50) ng/mL Ur Drug Screen Interp Ethyl Alcohol < 10 (Less than 10) mg/dL 02/19/19 Range/Units 17:27 WBC (4.3-11.1) K/mcL RBC (4.19-5.50) M/mcL Hgb (12.9-16.9) g/dL Hct (37.5-50.1) % MCV (83.0-100.0) fL MCH (28.0-33.3) pg MCHC (31.6-35.5) g/dL RDW (11.5-14.5) % Plt Count (140-400) K/mcL MPV (9.4-12.4) fL Immature Gran % (0-4) % Seg Neutrophils % % Lymphocytes % % Monocytes % % Eosinophils % % Basophils % % Neutrophils # (1.6-8.9) K/mcL Lymphocytes # (0.6-4.6) K/mcL Monocytes # (0.0-1.3) K/mcL Eosinophils # (0.0-0.6) K/mcL Basophils # (0.0-0.2) K/mcL Sodium (136-145) mEq/L Potassium (3.5-5.1) mEq/L Chloride (98-107) mEq/L Carbon Dioxide (23-29) mEq/L BUN (6-20) mg/dL Creatinine (0.70-1.30) mg/dL Est GFR ( Amer) (> 60) Est GFR (Non-Af Amer) (> 60) BUN/Creatinine Ratio (6-26) Glucose (70-105) mg/dL Calculated Osmolality (280-300) Calcium (8.6-10.3) mg/dL Urine Color (Yellow) Urine Clarity (Clear) Urine pH (5.0-8.0) pH Units Ur Specific [place] (1.010-1.025) Urine Protein (Neg-Trace) mg/dL Urine Glucose (UA) (Normal) mg/dL Urine Ketones (Negative) mg/dL Urine Blood (Negative) Urine Nitrite (Negative) Urine Bilirubin (Negative) Urine Urobilinogen (Normal) mg/dL Ur Leukocyte Esterase (Negative) Urine Microscopic RBC (0-3) per hpf Urine Microscopic WBC (0-3) per hpf Ur Squamous Epith Cells (None-Few) per lpf Urine Bacteria (None-Few) per hpf Hyaline Casts (None-Few) per lpf Salicylates (15.0-30.0) mg/dL Urine Opiates Screen Negative (Mruwqw=276) ng/mL Acetaminophen (10-20) mcg/mL Ur Barbiturates Screen Negative (Hdgost=647) ng/mL Ur Phencyclidine Scrn Negative (Cutoff=25) ng/mL Ur Amphetamines Screen Positive H (Srzbqr=9148) ng/mL U Benzodiazepines Scrn Negative (Zydton=298) ng/mL Urine Cocaine Screen Negative (Cutoff= 300) ng/mL U Marijuana (THC) Screen Negative (Cutoff = 50) ng/mL Ur Drug Screen Interp See Below Ethyl Alcohol (Less than 10) mg/dL Psychiatric Medical Clearance - Medical Clearance Checklist Medical History: No Social History Section defined Current Vitals: Last Vital Signs Temp 98.6 F 02/19/19 15:30 Pulse 87 02/19/19 15:30 Resp 14 02/19/19 15:30 BP 118/74 02/19/19 15:30 Pulse Ox 98 02/19/19 15:30 Psychiatric Lab Panel: Drug Levels and Toxicity 02/19/19 02/19/19 15:24 17:27 Urine Opiates Screen Negative Acetaminophen < 10 L Ur Barbiturates Screen Negative Ur Phencyclidine Scrn Negative Ur Amphetamines Screen Positive H U Benzodiazepines Scrn Negative Urine Cocaine Screen Negative U Marijuana (THC) Screen Negative Ethyl Alcohol < 10 Abnormal Labs: Abnormal lab results Chloride 110 mEq/L (98-107) H 02/19/19 15:24 Ur Specific [place] 1.028 (1.010-1.025) H 02/19/19 17:27 30 mg/dL (Neg-Trace) H 02/19/19 17:27 Small (Negative) H 02/19/19 17:27 Ur Squamous Epith Cells Many per lpf (None-Few) H 02/19/19 17:27 Salicylates < 2.5 mg/dL (15.0-30.0) L 02/19/19 15:24 Acetaminophen < 10 mcg/mL (10-20) L 02/19/19 15:24 Ur Amphetamines Screen Positive ng/mL (Swjenc=1787) H 02/19/19 17:27 Statement of Medical Clearance: I have evaluated the patient, reviewed diagnostic information, and certify that the patient's medical condition is sufficiently stable that transfer to the psychiatric unit does not pose a significant risk of deterioration. Attestation Statement - Attestation Attestation: I have seen this patient with the resident physician, I have personally evaluated this patient. I had reviewed the chart and document dictation by the resident physician and aM in agreement with the information documented by the resident physician. Please see documentation by the resident physician for complete chart including past medical history, family medical history, review of systems, current history and physical and laboratory and imaging studies. I was present for all procedures, provided direct supervision for all procedures, was present for the entirety of all procedures and provided direct guidance during the procedures. Please see documentation by the resident physician for any procedures performed. I have reviewed all interpretations of EKGs, and reviewed all EKGs performed on patient's as well. I have also reviewed reports of imaging as provided by radiology.
--- NOTE | 2019-02-19 15:27 | Emergency Department Note ---
Disposition Clinical Impression: Suicidal ideation Disposition: Still a Patient Condition: Fair Forms: ED Satisfaction Letter Time of Disposition: 15:27 General Adult HPI - General Chief complaint: ED Psychiatric Symptoms Stated complaint: SI Time Seen by Provider: 02/19/19 15:02 Source: patient, EMS Mode of arrival: EMS Limitations: no limitations Nursing Notes Reviewed: Yes Vital Signs Reviewed: Yes - Related Data Home Medications Medication Instructions Recorded Confirmed ARIPiprazole [Abilify] 5 mg PO DAILY 12/18/18 12/30/18 FLUoxetine HCl [Prozac] 20 mg PO DAILY 12/18/18 12/30/18 Pantoprazole Sodium [Protonix] 20 mg PO DAILY 12/31/18 12/31/18 Allergies Allergy/AdvReac Type Severity Reaction Status Date / Time Amoxicillin [From Augmentin] Allergy See Verified 12/31/18 14:48 Comments clavulanic acid Allergy See Verified 12/31/18 14:47 [From Augmentin] Comments Constitutional: Denies: fever, weakness Cardiovascular: Denies: chest pain, dyspnea on exertion Respiratory: Denies: cough, dyspnea, wheezes Gastrointestinal: Denies: abdominal pain, nausea, vomiting, diarrhea Genitourinary: Denies: dysuria, hematuria Musculoskeletal: Denies: back pain, neck pain Integumentary: Denies: rash Neurological: Denies: headache Psychiatric: Reports: anxiety, depression, suicidal thoughts. Denies: homicidal thoughts, auditory hallucinations, visual hallucinations Endocrine: Denies: fatigue Past Medical History - Past Medical History Medical history: Reports: no medical history Surgical history: Reports: herniorrhaphy Psychiatric history: Reports: anxiety, depression - Social History Smoking Status: Former smoker Smokeless Tobacco Status: No Alcohol use: Reports: none Drug use: Reports: none Physical Exam - General Limitations: no limitations General appearance: alert, in no apparent distress Attestation Statement - Attestation Attestation: I have seen this patient with the resident physician, I have personally evaluated this patient. I had reviewed the chart and document dictation by the resident physician and aM in agreement with the information documented by the resident physician. Please see documentation by the resident physician for complete chart including past medical history, family medical history, review of systems, current history and physical and laboratory and imaging studies. I was present for all procedures, provided direct supervision for all procedures, was present for the entirety of all procedures and provided direct guidance during the procedures. Please see documentation by the resident physician for any procedures performed. I have reviewed all interpretations of EKGs, and reviewed all EKGs performed on patient's as well. I have also reviewed reports of imaging as provided by radiology. Patient presented emergency department with chief complaint of suicidal ideation, he has not been taking his medications for his bipolar disorder for an unknown amount of time, states that he has been having progressively worsening problems ever since his fiancee left him, states that he feels like he wants to cannot describe a specific plan, with states that he just cannot get over this. He reports that he has not been admitted for this in the past, states that he has had no recent illnesses or fevers chills cough sputum production headache neck pain chest pain shortness breath nausea vomiting diarrhea. No hallucinations. Denies taking anything to try to harm himself denies alcohol today. On physical exam, he has a flattened affect, poor eye contact, does appear sad and, no evidence of active hallucinations, no evidence of toxidrome neurologic examination is nonfocal oropharynx is normal normal mucous membranes lungs are clear heart is regular no murmurs rubs or gallops no tachycardia abdomen soft and nontender. Skin is warm dry without rash or petechiae. Psychiatric evaluation to be performed after medical clearance.
[2019-02-19 15:43] LABS: Basophils # 0.1 K/mcL (0.0-0.2); Basophils % 0.6 %; Eosinophils # 0.1 K/mcL (0.0-0.6); Eosinophils % 0.6 %; Hematocrit 44.1 % (37.5-50.1); Hemoglobin 14.9 g/dL (12.9-16.9); Immature Granulocytes % 0.3 % (0-4); Lymphocytes # 2.5 K/mcL (0.6-4.6); Lymphocytes % 28.2 %; Mean Corpuscular HGB Conc 33.8 g/dL (31.6-35.5); Mean Corpuscular Hemoglobin 30.2 pg (28.0-33.3); Mean Corpuscular Volume 89.3 fL (83.0-100.0); Monocytes # 0.7 K/mcL (0.0-1.3); Monocytes % 8.1 %; Neutrophils # 5.5 K/mcL (1.6-8.9); Platelet Count 168 K/mcL (140-400); Red Blood Count 4.94 M/mcL (4.19-5.50); Red Cell Distribution Width 12.3 % (11.5-14.5); Segmented Neutrophils % 62.2 %; White Blood Count 8.9 K/mcL (4.3-11.1)
[2019-02-19 16:02] LABS: Acetaminophen < 10 mcg/mL (10-20); BUN/Creatinine Ratio 10 (6-26); Blood Urea Nitrogen 10 mg/dL (6-20); Calcium 9.9 mg/dL (8.6-10.3); Carbon Dioxide 27 mEq/L (23-29); Chloride 110 mEq/L (98-107); Ethanol < 10 mg/dL (Less than 10); Glucose 101 mg/dL (70-105); Osmolality,Calculated 295 (280-300); Potassium 3.7 mEq/L (3.5-5.1); Salicylate < 2.5 mg/dL (15.0-30.0); Sodium 143 mEq/L (136-145); eGFR For African Americans > 60 (> 60); eGFR For Non-African Americans > 60 (> 60)
[2019-02-19 17:47] LABS: Bilirubin,Urine Small (Negative); Blood,Urine Negative (Negative); Clarity,Urine Clear (Clear); Color,Urine Dark Yellow (Yellow); Glucose,Urine (UA) Normal (Normal); Ketones,Urine Negative (Negative); Leukocyte Esterase,Urine Negative (Negative); Nitrite,Urine Negative (Negative); PH,Urine 5.5 pH Units (5.0-8.0); Protein,Urine 30 mg/dL (Neg-Trace); Specific Gravity,Urine 1.028 (1.010-1.025); Urobilinogen,Urine Normal (Normal)
[2019-02-19 17:51] LABS: Bacteria,Urine None Seen per hpf (None-Few); Hyaline Casts,Urine None Seen per lpf (None-Few); RBC,Urine 0-3 per hpf (0-3); Squamous Epithelial Cell,Urine Many per lpf (None-Few); WBC,Urine 0-3 per hpf (0-3)
[2019-02-19 17:57] LABS: Amphetamine Screen,Urine Positive ng/mL (Cutoff=1000); Barbiturate Screen,Urine Negative ng/mL (Cutoff=200); Benzodiazepines Screen,Urine Negative ng/mL (Cutoff=200); Cannabinoid Screen,Urine Negative ng/mL (Cutoff = 50); Cocaine Screen,Urine Negative ng/mL (Cutoff= 300); Opiate Screen,Urine Negative ng/mL (Cutoff=300); Phencyclidine Screen,Urine Negative ng/mL (Cutoff=25)
[2019-02-19] MEDS ORDERED: *HR* LORazepam 1 MG TABLET PO PRN (21:18)
[2019-02-19] MEDS ORDERED: hydrOXYzine pamoate 25 MG CAPSULE PO PRN (21:18)
[2019-02-19] MEDS ORDERED: *HR* LORazepam 2 MG/ML VIAL IM PRN (21:18)
[2019-02-19] MEDS ORDERED: traZODone 50 MG TABLET PO PRN (21:18)
[2019-02-19] MEDS ORDERED: MOM Conc 10 ML UD.LIQ PO PRN (21:18)
[2019-02-19] MEDS ORDERED: Ibuprofen 400 MG TABLET PO PRN (21:18)
[2019-02-19] MEDS ORDERED: Haloperidol Lactate 5 MG/ML VIAL IM PRN (21:18)
[2019-02-19] MEDS ORDERED: Mag Hydrox/Al Hydrox/Simeth 30 ML UDC PO PRN (21:18)
--- NOTE | 2019-02-20 10:41 | Psychiatry History & Physical ---
Date of Encounter: 02/20/19 Time of Encounter: 10:10 History of Present Illness Patient Stated Chief Complaint: I want to Medicare Admission Attestation: For traditional Medicare patients the provided hospital inpatient services are reasonable and necessary and in the case of services not specified as inpatient-only under 42 CFR 419.22 (n), that they are appropriately provided as inpatient services in accordance 42 CFR 412.3. For Critical Access Hospital the patient may reasonably be expected to be discharged or transferred to a hospital within 96 hours after admission to the Critical Access Hospital. Admitted From: Emergency Dept Plans for Post Hospital Care: Home History of Present Illness: Mr. Aldana is a 28 yo male with PMHx of bipolar disorder and anxiety presents to the emergency department via EMS with suicidal ideations. Patient states he does not remember the last time he took any of his medications as he has been out of them. He has been having increasing suicidal thoughts over the past week but the past 2 days they have been constant. He has had thoughts like this in the past but states they always went away on their own. Today his mother called EMS because the patient said that he wanted to end it all. Patient does want to seek help and talk to somebody here today because he does not want to end his life but he does not know how to get these feelings to go away. Does not have any complaints at this time including fevers, chest pain, shortness of breath, abdominal pain, nausea and vomiting. He has not taken anything to try to overdose today and denies alcohol use today. Patient denies homicidal ideation, visual and auditory hallucinations. He does not know the normal medications that he takes for his bipolar disorder and anxiety. He has no specific plan at this time. He states the specific exacerbation of his suicidal ideations started when his fiancee left him a little over a week ago This morning he reports ongoing suicidal ideation with a plan to overdose. He reports sad mood, decreased interest, feelings of guilt and worthlessness, low energy, decreased sleep. He does endorse methamphetamine use. He has previously been diagnosed with bipolar disorder and has a history of manic symptoms with elevated irritable mood, grandiosity, decreased need for sleep, impulsivity. He had a recent breakup which contributed to his depression. He also [place] his mother ly which was very concerning to her. He denies hallucinations. He denies homicidal thoughts. Past Med Surg Social Fam HX - Past Medical History Medical history: no medical history - Past Psychiatric History Psychiatric history: Reports: bipolar, prior suicide attempt, previous psychiatric hospitalization Past psychiatric history details: He reports he has been in the hospital before but could not give me details. He reports prior suicide attempts by overdose. He could not tell me what medications he is previously been tried on. He denies outpatient linkage. Family psychiatric history: No Family History of Suicide: None - Past Surgical History Surgical History: herniorrhaphy - Social History Smoking Status: Current every day smoker Smokeless Tobacco Status: No Alcohol use: occasionally Drug use: none - Family History Mother Hx Family Cardiac Disorders: Yes (AR, CAD) Medications & Allergies Divalproex (24 HR) [Depakote ER (24 HR)] 500 mg PO HS 02/19/19 [History] hydrOXYzine HCl [Hydroxyzine HCl] 25 mg PO TID PRN 02/19/19 [History] Allergy/AdvReac Type Severity Reaction Status Date / Time Amoxicillin [From Augmentin] Allergy See Verified 12/31/18 14:48 Comments clavulanic acid Allergy See Verified 12/31/18 14:47 [From Augmentin] Comments Review of Systems Constitutional: Reports: weakness Eyes: Denies: eye pain Ears, Nose, Throat: Denies: ear pain Cardiovascular: Denies: chest pain Respiratory: Denies: cough Gastrointestinal: Denies: abdominal pain Genitourinary male: Denies: urgency Musculoskeletal: Denies: back pain Integumentary: Denies: rash Neurological: Reports: weakness Psychiatric: Reports: depression, anxiety, suicidal ideation, anhedonia, hopelessness, irritability, mood swings. Denies: change in appetite, homicidal ideation, auditory hallucinations, visual hallucinations Endocrine: Reports: fatigue Hematologic/Lymphatic: Denies: easy bleeding Allergic/Immunologic: Denies: facial swelling Exam - HEENT Head exam IM: Present: normal inspection Eye exam IM: Present: EOMI ENT exam IM: Present: mucous membranes moist - Neurological Neurological exam: Present: CN II-XII intact - Respiratory Respiratory exam IM: Absent: respiratory distress - GI/Abdominal GI/Abdominal exam IM: Present: no peritoneal signs - Extremities Extremities exam IM: Present: full ROM - Skin Skin exam IM: Absent: cyanosis - Constitutional Vitals: Temp Pulse Resp BP Pulse Ox 98.4 F 64 16 120/72 99 02/19/19 20:25 02/19/19 20:25 02/19/19 20:25 02/19/19 20:25 02/19/19 20:25 General appearance: disheveled - Musculoskeletal Gait: other (In bed) Station: stooped (Intervention) Strength & Tone: mild weakness - Psychiatric Patient Orientation: Yes Person, Yes Time, Yes Place, Yes Circumstance Level of alertness: Sedated Behavior: withdrawn Psychomotor activity: Slowed Eye Contact: Minimal Contact Mood Description: Depressed Patient description of mood: Down Affect description: dysphoric Speech Volume: Soft/Quiet Speech pattern: slowed Language & Vocabulary: consistent with education Thought Process: Logical Thought Content: Yes Suicidal ideation, No Homicidal ideation Perceptual Disturbances: No Auditory hallucinations, No Visual hallucinations Attention Span Ability: Capable of Focused Attention Memory Description: Grossly Intact Patient Reliability: Questionable Historian Fund of knowledge: Yes average Intelligence Estimate: Average Judgment: Poor Insight: None Results - Drug Levels and Toxicology Drug Levels and Toxicology: Drug Levels and Toxicity 02/19/19 02/19/19 15:24 17:27 Urine Opiates Screen Negative Acetaminophen < 10 L Ur Barbiturates Screen Negative Ur Phencyclidine Scrn Negative Ur Amphetamines Screen Positive H U Benzodiazepines Scrn Negative Urine Cocaine Screen Negative U Marijuana (THC) Screen Negative Ethyl Alcohol < 10 - Labs Labs: Laboratory Last Values WBC 8.9 K/mcL (4.3-11.1) 02/19/19 15:24 RBC 4.94 M/mcL (4.19-5.50) 02/19/19 15:24 Hgb 14.9 g/dL (12.9-16.9) 02/19/19 15:24 Hct 44.1 % (37.5-50.1) 02/19/19 15:24 MCV 89.3 fL (83.0-100.0) 02/19/19 15:24 MCH 30.2 pg (28.0-33.3) 02/19/19 15:24 MCHC 33.8 g/dL (31.6-35.5) 02/19/19 15:24 RDW 12.3 % (11.5-14.5) 02/19/19 15:24 Plt Count 168 K/mcL (140-400) 02/19/19 15:24 MPV 12.0 fL (9.4-12.4) 02/19/19 15:24 Immature Gran % 0.3 % (0-4) 02/19/19 15:24 Seg Neutrophils % 62.2 % 02/19/19 15:24 28.2 % 02/19/19 15:24 8.1 % 02/19/19 15:24 0.6 % 02/19/19 15:24 0.6 % 02/19/19 15:24 5.5 K/mcL (1.6-8.9) 02/19/19 15:24 2.5 K/mcL (0.6-4.6) 02/19/19 15:24 0.7 K/mcL (0.0-1.3) 02/19/19 15:24 0.1 K/mcL (0.0-0.6) 02/19/19 15:24 0.1 K/mcL (0.0-0.2) 02/19/19 15:24 Sodium 143 mEq/L (136-145) 02/19/19 15:24 Potassium 3.7 mEq/L (3.5-5.1) 02/19/19 15:24 Chloride 110 mEq/L (98-107) H 02/19/19 15:24 Carbon Dioxide 27 mEq/L (23-29) 02/19/19 15:24 BUN 10 mg/dL (6-20) 02/19/19 15:24 1.03 mg/dL (0.70-1.30) 02/19/19 15:24 Est GFR ( Amer) > 60 (> 60) 02/19/19 15:24 Est GFR (Non-Af Amer) > 60 (> 60) 02/19/19 15:24 10 (6-26) 02/19/19 15:24 Glucose 101 mg/dL (70-105) 02/19/19 15:24 295 (280-300) 02/19/19 15:24 Calcium 9.9 mg/dL (8.6-10.3) 02/19/19 15:24 Dark Yellow (Yellow) 02/19/19 17:27 Clear (Clear) 02/19/19 17:27 5.5 pH Units (5.0-8.0) 02/19/19 17:27 Ur Specific [place] 1.028 (1.010-1.025) H 02/19/19 17:27 30 mg/dL (Neg-Trace) H 02/19/19 17:27 Normal mg/dL (Normal) 02/19/19 17:27 Negative mg/dL (Negative) 02/19/19 17:27 Negative (Negative) 02/19/19 17:27 Negative (Negative) 02/19/19 17:27 Small (Negative) H 02/19/19 17:27 Normal mg/dL (Normal) 02/19/19 17:27 Ur Leukocyte Esterase Negative (Negative) 02/19/19 17:27 0-3 per hpf (0-3) 02/19/19 17:27 0-3 per hpf (0-3) 02/19/19 17:27 Ur Squamous Epith Cells Many per lpf (None-Few) H 02/19/19 17:27 None Seen per hpf (None-Few) 02/19/19 17:27 Hyaline Casts None Seen per lpf (None-Few) 02/19/19 17:27 Salicylates < 2.5 mg/dL (15.0-30.0) L 02/19/19 15:24 Negative ng/mL (Hnnhcr=095) 02/19/19 17:27 Acetaminophen < 10 mcg/mL (10-20) L 02/19/19 15:24 Ur Barbiturates Screen Negative ng/mL (Oxztxm=807) 02/19/19 17:27 Ur Phencyclidine Scrn Negative ng/mL (Cutoff=25) 02/19/19 17:27 Ur Amphetamines Screen Positive ng/mL (Ecprcu=6061) H 02/19/19 17:27 U Benzodiazepines Scrn Negative ng/mL (Cbnxke=118) 02/19/19 17:27 Negative ng/mL (Cutoff= 300) 02/19/19 17:27 U Marijuana (THC) Screen Negative ng/mL (Cutoff = 50) 02/19/19 17:27 Ur Drug Screen Interp See Below 02/19/19 17:27 Ethyl Alcohol < 10 mg/dL (Less than 10) 02/19/19 15:24 Assessment and Plan (1) Bipolar disorder current episode depressed Current visit: Yes Status: Acute Plan: Admit inpatient for safety and stabilization, Close observation, Suicide Precautions per unit protocol, Encourage participation in unit milieu, Group Therapy, Monitor sleep, Monitor appetite Additional Plan: Continue Depakote. Get Depakote level and adjust dose accordingly. Add Lexapro 10 mg daily. Encourage group attendance. Risks, benefits, side effects, alternatives discussed w/pt: Yes Patient agreeable to treatment: Yes Plans for Post Hospital Care: Home Qualifiers: Current episode severity: severe Psychotic features: without psychotic features Qualified Code(s): F31.4 - Bipolar disorder, current episode depressed, severe, without psychotic features
[2019-02-20] MEDS ORDERED: NON-FORMULARY MEDICATION 1 EACH EACH (Hydroxyzine Hcl [Hydroxyzine Hcl] 25 MG) PO PRN (10:45)
[2019-02-20] MEDS: Divalproex (24 HR) 500 MG TABLET PO SCH ×2 (12:59→22:21)
[2019-02-21 09:37] VITALS: BP 126/84
--- NOTE | 2019-02-21 11:40 | Discharge Summary ---
Date of Encounter: 02/21/19 Time of Encounter: 11:00 Diagnosis - Discharge Diagnosis (1) Bipolar disorder current episode depressed Status: Acute Qualifiers: Current episode severity: severe Psychotic features: without psychotic features Qualified Code(s): F31.4 - Bipolar disorder, current episode depressed, severe, without psychotic features Medications - Discharge Medications Prescriptions: Divalproex (24 HR) [Depakote ER (24 HR)] 500 mg PO HS #30 tab.er.24h hydrOXYzine HCl [Hydroxyzine HCl] 25 mg PO TID PRN #45 tablet PRN Reason: Anxiety Escitalopram [Lexapro] 10 mg PO DAILY #15 tablet traZODone [TraZODone] 50 mg PO HS PRN #15 tablet PRN Reason: Insomnia Divalproex (24 HR) [Depakote ER (24 HR)] 500 mg PO HS #30 tab.er.24h 02/21/19 [Rx] Escitalopram [Lexapro] 10 mg PO DAILY #15 tablet 02/21/19 [Rx] hydrOXYzine HCl [Hydroxyzine HCl] 25 mg PO TID PRN #45 tablet 02/21/19 [Rx] traZODone [TraZODone] 50 mg PO HS PRN #15 tablet 02/21/19 [Rx] Allergy/AdvReac Type Severity Reaction Status Date / Time Amoxicillin [From Augmentin] Allergy See Verified 12/31/18 14:48 Comments clavulanic acid Allergy See Verified 12/31/18 14:47 [From Augmentin] Comments Results Procedures and tests throughout hospitalization: Completed Lab Orders Category Date Time Status Acetaminophen Stat Lab 02/19/19 15:24 Completed Basic Metabolic Panel Stat Lab 02/19/19 15:24 Completed Complete Blood Count [HEME] Stat Lab 02/19/19 15:24 Completed Drug Screen, Urine [UCHEM] Stat Lab 02/19/19 17:27 Completed Ethanol Stat Lab 02/19/19 15:24 Completed Salicylate Stat Lab 02/19/19 15:24 Completed Urinalysis reflex Microscopic [URIN] Stat Lab 02/19/19 17:27 Completed Lab Results 02/19/19 02/19/19 02/19/19 Range/Units 15:24 15:24 17:27 WBC 8.9 (4.3-11.1) K/mcL RBC 4.94 (4.19-5.50) M/mcL Hgb 14.9 (12.9-16.9) g/dL Hct 44.1 (37.5-50.1) % MCV 89.3 (83.0-100.0) fL MCH 30.2 (28.0-33.3) pg MCHC 33.8 (31.6-35.5) g/dL RDW 12.3 (11.5-14.5) % Plt Count 168 (140-400) K/mcL MPV 12.0 (9.4-12.4) fL Immature Gran % 0.3 (0-4) % Seg Neutrophils % 62.2 % Lymphocytes % 28.2 % Monocytes % 8.1 % Eosinophils % 0.6 % Basophils % 0.6 % Neutrophils # 5.5 (1.6-8.9) K/mcL Lymphocytes # 2.5 (0.6-4.6) K/mcL Monocytes # 0.7 (0.0-1.3) K/mcL Eosinophils # 0.1 (0.0-0.6) K/mcL Basophils # 0.1 (0.0-0.2) K/mcL Sodium 143 (136-145) mEq/L Potassium 3.7 (3.5-5.1) mEq/L Chloride 110 H (98-107) mEq/L Carbon Dioxide 27 (23-29) mEq/L BUN 10 (6-20) mg/dL Creatinine 1.03 (0.70-1.30) mg/dL Est GFR ( Amer) > 60 (> 60) Est GFR (Non-Af Amer) > 60 (> 60) BUN/Creatinine Ratio 10 (6-26) Glucose 101 (70-105) mg/dL Calculated Osmolality 295 (280-300) Calcium 9.9 (8.6-10.3) mg/dL Urine Color Dark Yellow (Yellow) Urine Clarity Clear (Clear) Urine pH 5.5 (5.0-8.0) pH Units Ur Specific [place] 1.028 H (1.010-1.025) Urine Protein 30 H (Neg-Trace) mg/dL Urine Glucose (UA) Normal (Normal) mg/dL Urine Ketones Negative (Negative) mg/dL Urine Blood Negative (Negative) Urine Nitrite Negative (Negative) Urine Bilirubin Small H (Negative) Urine Urobilinogen Normal (Normal) mg/dL Ur Leukocyte Esterase Negative (Negative) Urine Microscopic RBC 0-3 (0-3) per hpf Urine Microscopic WBC 0-3 (0-3) per hpf Ur Squamous Epith Cells Many H (None-Few) per lpf Urine Bacteria None Seen (None-Few) per hpf Hyaline Casts None Seen (None-Few) per lpf Salicylates < 2.5 L (15.0-30.0) mg/dL Urine Opiates Screen (Mnqexz=392) ng/mL Acetaminophen < 10 L (10-20) mcg/mL Ur Barbiturates Screen (Ucpjfr=162) ng/mL Ur Phencyclidine Scrn (Cutoff=25) ng/mL Ur Amphetamines Screen (Evujmw=2643) ng/mL U Benzodiazepines Scrn (Whraut=146) ng/mL Urine Cocaine Screen (Cutoff= 300) ng/mL U Marijuana (THC) Screen (Cutoff = 50) ng/mL Ur Drug Screen Interp Ethyl Alcohol < 10 (Less than 10) mg/dL 02/19/19 Range/Units 17:27 WBC (4.3-11.1) K/mcL RBC (4.19-5.50) M/mcL Hgb (12.9-16.9) g/dL Hct (37.5-50.1) % MCV (83.0-100.0) fL MCH (28.0-33.3) pg MCHC (31.6-35.5) g/dL RDW (11.5-14.5) % Plt Count (140-400) K/mcL MPV (9.4-12.4) fL Immature Gran % (0-4) % Seg Neutrophils % % Lymphocytes % % Monocytes % % Eosinophils % % Basophils % % Neutrophils # (1.6-8.9) K/mcL Lymphocytes # (0.6-4.6) K/mcL Monocytes # (0.0-1.3) K/mcL Eosinophils # (0.0-0.6) K/mcL Basophils # (0.0-0.2) K/mcL Sodium (136-145) mEq/L Potassium (3.5-5.1) mEq/L Chloride (98-107) mEq/L Carbon Dioxide (23-29) mEq/L BUN (6-20) mg/dL Creatinine (0.70-1.30) mg/dL Est GFR ( Amer) (> 60) Est GFR (Non-Af Amer) (> 60) BUN/Creatinine Ratio (6-26) Glucose (70-105) mg/dL Calculated Osmolality (280-300) Calcium (8.6-10.3) mg/dL Urine Color (Yellow) Urine Clarity (Clear) Urine pH (5.0-8.0) pH Units Ur Specific [place] (1.010-1.025) Urine Protein (Neg-Trace) mg/dL Urine Glucose (UA) (Normal) mg/dL Urine Ketones (Negative) mg/dL Urine Blood (Negative) Urine Nitrite (Negative) Urine Bilirubin (Negative) Urine Urobilinogen (Normal) mg/dL Ur Leukocyte Esterase (Negative) Urine Microscopic RBC (0-3) per hpf Urine Microscopic WBC (0-3) per hpf Ur Squamous Epith Cells (None-Few) per lpf Urine Bacteria (None-Few) per hpf Hyaline Casts (None-Few) per lpf Salicylates (15.0-30.0) mg/dL Urine Opiates Screen Negative (Hlymuq=966) ng/mL Acetaminophen (10-20) mcg/mL Ur Barbiturates Screen Negative (Iuffbk=365) ng/mL Ur Phencyclidine Scrn Negative (Cutoff=25) ng/mL Ur Amphetamines Screen Positive H (Flwhzb=9699) ng/mL U Benzodiazepines Scrn Negative (Tgbaue=020) ng/mL Urine Cocaine Screen Negative (Cutoff= 300) ng/mL U Marijuana (THC) Screen Negative (Cutoff = 50) ng/mL Ur Drug Screen Interp See Below Ethyl Alcohol (Less than 10) mg/dL Provider Date of admission: 02/19/19 21:01 Primary care physician: PCP NONE Discharging clinician: Mary Carnes Psychiatry Exam - Constitutional Vitals: Temp Pulse Resp BP Pulse Ox 99.4 F 97 18 126/84 97 02/21/19 09:00 02/21/19 09:00 02/21/19 09:00 02/21/19 09:00 02/21/19 09:00 General appearance: age & developmentally appropriate, well-groomed, well- nourished - Musculoskeletal Gait: normal Station: relaxed Strength & Tone: normal for patient - Psychiatric Patient Orientation: Yes Person, Yes Time, Yes Place, Yes Circumstance Level of alertness: Alert Behavior: calm, cooperative Psychomotor activity: Normal Eye Contact: Maintains Eye Contact Mood Description: Euthymic/stable Patient description of mood: Good Affect description: congruent with mood, full range Speech Volume: Normal Speech pattern: normal rate, normal rhythm, normal tone, fluent, spontaneous Language & Vocabulary: consistent with education Thought Process: Linear, Goal Oriented Thought Content: No Suicidal ideation, No Homicidal ideation, No Overt delusions Perceptual Disturbances: No Auditory hallucinations, No Visual hallucinations Attention Span Ability: Capable of Focused Attention Memory Description: Grossly Intact Patient Reliability: Reliable Historian Fund of knowledge: Yes abstraction ability, Yes aware of current events Intelligence Estimate: Average Judgment: Good Insight: Full Hospital Course Hospital course: Mr. Aldana is a 28 year old male was admitted for suicidal ideations following methamphetamine ingestion. He said he does not recall taking the drug himself and thinks perhaps someone slipped to him when he was drinking alcohol previously. He was started back on his Depakote as well as Lexapro for mood and Vistaril for anxiety and trazodone for insomnia.Patient was educated of diagnosis and the risk-benefit side effects of this alternative treatment options and was monitored for responsiveness and side effects. He did have one episode of needing emergency medications and he became upset about being in the hospital and needed help calming down. He said he really just wanted to go home. Mood anxiety sleep and appetite interest improved as did future orientation. Self-harm thoughts subsided, thinking cleared, psychosis resolved, and mood stabilized. Patient was able to attend both individual and group therapy sessions as well as meet with the psychiatrist daily and urged to discuss any medication or treatment issues or other concerns. The patient was educated primarily by verbal means about their diagnosis and manifestations in their life. The option for treatment including group and individual therapy programming was offered to the patient in addition to the use of medications wi th all their potential risks, benefits, and side effects as well as the risks of not taking medication and non-adhereance were discussed with the patient at length. The patient was given the opportunity to ask questions and was noted to participate in the treatment in the planning process. The patient felt ready and eager to be discharged from the inpatient psychiatric unit to continue on with treatment as an outpatient. The patient agreed that is they were safe for this disposition. The patient was considered to be able to participate in informed consent and decision making with respect to medical, legal, and financial issues of the time of discharge. At the time of discharge the patient adamantly denied any concerns for lethality including suicidal or homicidal thoughts ideations or plans and was future oriented toward ongoing mental health care, medical follow-up and sobriety. Time spent discussing smoking cessation with patient: 3 to 10 minutes Does patient wish to continue nicotine replacement upon disc: No - Time Spent with Patient Total time spent providing and/or coordinating discharge services: 25 Less than 30 minutes Specific discharge activities: Interval history reviewed. Available labs reviewed . Psychotherapy provided. Patient had an opportunity to ask questions and address concerns. Patient was in agreement with the treatment plan. The risks benefits and side effects of medications were discussed with the patient, including alternatives and treatment. The patient was educated on the abstaining from any alcohol or illicit substances, following up with all scheduled appointments, and taking all medications as prescribed. The patient was educated on 90 meetings in 90 days and to find a sponsor. Assessment and Plan - Patient/Caregiver Discharge Instructions Activity: resume usual activities as tolerated Diet: regular diet Additional Instructions: Continue current medications. Follow up with outpatient mental health. Encourage continued therapy in a group or individual setting. The patient was discharged to home. - Follow up Plan Follow up with: NONE,PCP [Primary Care Provider] - Overall status at discharge: Stable Disposition: Home, Self-Care Quality - Multiple Antipsychotics Patient discharged on 2 or more antipsychotic medications: No Procedures - Procedures Procedures: Medication Management, Crisis Stabilization, Supportive Therapy, Group Therapy, Psychoeducational Therapy
== END 2019-02-21 15:00 | disposition home or self-care (01) | DRG 753 ==
LOC: EMEROOARM 15:01 → 1ANU 21:01 → SUATTDRO 21:01 → 1ANU 21:10
PROVIDERS: ADMIT Psychiatry & Neurology Psychiatry; ATTEND Psychiatry & Neurology Psychiatry